=== PATIENT | female | born 1960 | race African-American/Black ===

== ENCOUNTER 2021-03-06 15:16 | Emergency (ER) | payer OTHER ==
[~2021-03-06] VITALS: Ht 167.6 cm; Wt 77.0 kg
[2021-03-06] MEDS ORDERED: HYDROCODONE/ACETAMINOPHEN 5/325MG TABLET PO ONE (16:30)
[2021-03-06] MEDS ORDERED: CLINDAMYCIN 300 MG in DEXTROSE 5% WATER 50 ML IV ONE (16:30)
[2021-03-06 17:11] LABS: BASOPHILS % 0.5 % (0.0-2.0); EOSINOPHILS % 1.2 % (0.0-5.0); HEMATOCRIT. 40.2 % (36.0-48.0); LYMPHOCYTES % 15.9 % (20.0-50.0); MEAN CORPUSCULAR HEMOGLOBIN 28.4 pg (28.0-32.0); MEAN CORPUSCULAR VOLUME 81.9 fL (81.0-99.0); MEAN PLATELET VOLUME 9.7 fl (7.4-10.4); MONOCYTES % 6.5 % (2.0-8.0); NEUTROPHILS % 75.9 % (40.0-76.0); PLATELET 227 x1000/uL (130-400); RED BLOOD CELL COUNT 4.91 mill/uL (4.2-5.4); RED CELL DISTRIBUTION WIDTH 14.5 % (11.6-14.6)
[2021-03-06 17:15] LABS: CHLORIDE 112 mEq/L (98-107)
[2021-03-06] MEDS ORDERED: CLIN300C12 MT (17:44)
[2021-03-06] MEDS ORDERED: IBUP-2029 MT (17:44)
[2021-03-06] MEDS ORDERED: HYDR-4001 MT (17:44)
[2021-03-06] MEDS ORDERED: KETOROLAC 15MG/ML VIAL IV ONE (17:45)
[2021-03-06 17:52] VITALS: BP 154/82
== END 2021-03-06 18:13 | disposition home or self-care (01) ==
LOC: ER 15:16
DX: K04.7 Periapical abscess without sinus (principal)
CPT/HCPCS: 36415; 80053; 85025; 87040; 96365; 96375; 99284; J1885; J3490; J7060; Z7610